=== PATIENT | male | born 2000 | race African-American/Black ===

== ENCOUNTER 2020-05-25 12:17 | Day surgery (SDC) | payer OTHER ==
[~2020-05-25 12:17] MED LIST: BUPIVACAINE HCL 0.5 % INJ/PF 30 ML SDV ONE; CEFAZOLIN 2 GM/D5W RTU 2 GM/50 ML RTUPB IV PRN; DEXAMETHASONE SOD PHOSPHATE INJ 4 MG/1 ML VIAL ONE; FENTANYL CITRATE INJ/PF 100 MCG/2 ML AMPUL ONE; MIDAZOLAM 2 MG/2 ML INJ ONE; ONDANSETRON HCL INJ/PF 4 MG/2 ML SDV ONE; PROPOFOL INJ 200 MG/20 ML VIAL IV ONE; SUCCINYLCHOLINE CHLORIDE INJ 200 MG/10 ML VIAL ONE
[2020-05-25] MEDS ORDERED: CEFAZOLIN 2 GM/D5W RTU 2 GM/50 ML RTUPB IV ONE (12:54)
[2020-05-25] MEDS ORDERED: PROMETHAZINE HCL INJ 25 MG/1 ML VIAL IV PRN ×2 (13:28)
[2020-05-25] MEDS ORDERED: DIPHENHYDRAMINE HCL 50 MG/ML VIAL IV PRN (13:28)
[2020-05-25] MEDS ORDERED: MEPERIDINE HCL/PF INJ 25 MG/1 ML DISP.SYRIN IV PRN (13:28)
[2020-05-25] MEDS ORDERED: FENTANYL CITRATE INJ/PF 100 MCG/2 ML AMPUL IV PRN ×3 (13:28)
[2020-05-25] MEDS ORDERED: ONDANSETRON HCL INJ/PF 4 MG/2 ML SDV IV PRN (13:28)
[2020-05-25] MEDS ORDERED: MORPHINE SULFATE 10 MG/ML INJ IV PRN (13:28)
[2020-05-25] MEDS ORDERED: OXYCODONE-ACETAMINOPHEN 5-325 MG TABLET PO PRN (13:38)
--- NOTE | 2020-05-25 13:39 | Discharge Summary ---
Discharge Summary (SDC) - Discharge Final Diagnosis: Right fifth metacarpal neck fracture Date of Surgery: 05/25/20 Discharge Date: 05/25/20 Condition: Good Treatment or Instructions: Schedule Follow Up w/ Dr. Martínez Israel @ [facility] for Surgery to be seen in 10-14 days or as scheduled [place]: [place]: [place]: Ice and elevate Patient may remove the splint for hygiene purposes but then reapply. If your fingers become numb please unwrap the Gerhard wrap but leave the splint in place, if the sensation does not return within 30 minutes please return to the emergency department. May begin finger range of motion attempting to make full fist. Please use ibuprofen (Motrin or Advil) 600-800 mg every 8 hours as needed for pain or fever DO NOT TAKE w/ TORADOL may use once TORADOL complete. You may also use acetaminophen (Tylenol) 1000 mg every 4-6 hours as needed for pain or fever. Please be aware that many medications contain acetaminophen, do not exceed a total of 1000 mg of acetaminophen every 6 hours. If ibuprofen and acetaminophen are not sufficient for your pain you may take the Percocet/Corn. Please be aware that the Percocet/Corn does contain Tylenol. Stool softener of choice when on pain medication. USE OF GGOI-ANI-LEJVNWI IBUPROFEN: Ibuprofen (Advil, Nuprin, Medipren, Motrin IB) is a medication for fever and pain control. In addition, it has anti- inflammatory effects which may be beneficial, especially in the treatment of injuries. It's best to take ibuprofen with food. Persons with ulcer disease or allergy to aspirin should notify their physician of this before taking ibuprofen. Ibuprofen can be given every four to six hours, for a total of four doses daily. Age Pain or fever dose Antiinflammatory dose 6-8 yr 200 mg (1 tab) 200 mg (1 tab) 9-11 yr 200 mg (1 tab) 200-400 mg (1-2 tab) 11-14 yr 200-400 mg (1-2 tab) 400 mg (2 tab) 15-adult 400 mg (2 tab) 600 mg (3 tab) ORAL NARCOTIC MEDICATION: You have been given a prescription for pain control. This medication is a narcotic. It's best taken with food, as nausea can result if taken on an empty stomach. Don't operate machinery or drive within six hours of taking this medica tion. Do not combine this medicine with alcohol, or with any medication which can cause sedation (such as cold tablets or sleeping pills) unless you get permission from the physician. Narcotics tend to cause constipation. If possible, drink plenty of fluids and eat a diet high in fiber and fruits. Please be aware that prescription narcotics also have the potential for abuse. People become addicted to these medications because of the general sense of wellbeing that they induce. This feeling along with a significant reduction in tension, anxiety, and aggression provides a stimulating seductive quality to these drugs. Once your pain is under control, we encourage you to discard your unused narcotics. Prescriptions: Ketorolac Tromethamine [Toradol 10 mg Tablet] 10 mg PO Q8HP PRN #10 tablet PRN Reason: Discharge Diet: As Tolerated Respiratory Treatments at Home: Deep Breathing/Coughing Discharge Activity: No Lifting Over 10 Pounds, No Lifting/Push/Pulling Report the Following to Your Physician Immediately: Fever over 101 Degrees, Unusual Bleeding, Redness, Swelling, Warmth, Increased Soreness
--- NOTE | 2020-05-25 13:42 | Operative Report ---
Operative Report DATE OF SURGERY: 05/25/20 PREOPERATIVE DIAGNOSIS: Right fifth metacarpal neck fracture POSTOPERATIVE DIAGNOSIS: Same OPERATION: ORIF displaced right fifth metacarpal neck fracture SURGEON: NETTIE HILTON ANESTHESIA: GA COMPLICATIONS: None ESTIMATED BLOOD LOSS: Minimal PROCEDURE: Indication for above procedure: 20-year-old male who sustained a fall onto his hand while playing basketball. Patient was found to have displaced metacarpal neck fracture. Conservative management was attempted including close reduction however patient had increased shortening and volar displacement. After discussing treatment options including operative versus nonoperative intervention risk and benefits were explained patient verbalized understanding consented for surgical procedure. Procedure In Detail: Patient was seen and evaluated in the preoperative holding area. The right upper extremity was initialized and marked. Patient received 2g of Ancef IV for bacterial prophylaxis. Patient was taken back to the operative room where transferred to the operative table and placed under general anesthesia. Once they were adequately anesthetized a nonsterile tourniquet was placed on the upper extremity. A surgical team debriefing was performed ensuring all instrumentation was available, the surgical procedure was discussed with p ossible concerns reviewed. The upper extremity was prepped with chlorhexidine and alcohol and draped in a sterile fashion. A timeout was done identifying correct patient, procedure and extremity everyone in attendance agree with this and verbalized no concerns. The extremity was exsanguinated the tourniquet was inflated to 250 mmHg. A 1 cm skin incision was made over the fifth MCP joint. Blunt dissection was performed. Extensor mechanism only was then opened and capsule exposed. Capsulotomy was made. Dorsal third of the metacarpal head was identified. There was mobility of the fracture noted on C arm fluoroscopy. The Jahss maneuver was then performed which reduced the metacarpal volar angular deformity and shortening. K wire for the [employer] 3.0 mm headless compression screws were then placed along the dorsal third within the articular surface. C-arm fluoroscopy was obtained which demonstrated improved metacarpal shortening and angular deformity no evidence of displacement. The articular surface was then countersunk. A 3.0 mm x 40 mm headless compression screw was then placed [place] was placed within the fracture site in order to avoid shortening however a cou ple millimeters of shortening did occur. Patient had full MP joint extension with tenodesis without evidence of malrotation. Final C arm fluoroscopy was obtained demonstrating acceptable reduction of the fracture. Wound copiously irrigated with normal saline. Extensor mechanism was closed interrupted 3-0 Vicryl suture. Half percent Marcaine without epinephrine was injected for postoperative pain control. Skin was closed with subcuticular 4-0 Monocryl reinforced with Dermabond and Steri-Strips. Patient was placed in a volar splint with partial mobilization of the MCP joints leaving the IP joints free. Sponge counts, instrument counts, needle counts were correct. Patient was then awoken from anesthesia. Transferred from the operating room table to the operating room stretcher. There was no intraoperative complications patient tolerated procedure well stable to PACU. Postop plan: Patient follow the office in 2 weeks we will obtain x-rays. Will begin range of motion 2 weeks postoperatively.
[2020-05-25] MEDS ORDERED: OXYCODONE-ACETAMINOPHEN 5-325 MG TABLET ONE ×2 (14:13→14:35)
--- NOTE | 2020-05-25 15:13 | RADIOLOGY REPORT (SQ) ---
EXAM DESCRIPTION: NO CHG FLUORO; HAND RIGHT 2 VIEWS IMAGES COMPLETED DATE/TIME: 05/25/2020 2:09 pm REASON FOR STUDY: HARDWARE PLACEMENT/PERC PINNING RIGHT 5TH METACARPAL ASSISTED WITH FLUORO S62.336D DISP FX OF NK OF 5TH MC BONE, R HAND, 7THD COMPARISON: None. FLUOROSCOPY TIME: 19 second 3 images saved to PACS. TECHNIQUE: Intra-operative images acquired during surgical procedure to evaluate progress. NUMBER OF IMAGES: 3 LIMITATIONS: None. FINDINGS: Orthopedic screw fixation of 5th metacarpal fracture. IMPRESSION: IMAGE(S) OBTAINED DURING PROCEDURE. COMMENT: Quality ID 145: Final reports for procedures using fluoroscopy that document radiation exp osure indices, or exposure time and number of fluorographic images (if radiation exposure indices are not available) Please consult full operative report of the attending physician for description of the procedure. TECHNICAL DOCUMENTATION: JOB ID: [id number] 2010 [employer]- All Rights Reserved Reading location - IP/workstation name: [email or web address]
--- NOTE | 2020-05-25 15:13 | RADIOLOGY REPORT (SQ) ---
EXAM DESCRIPTION: NO CHG FLUORO; HAND RIGHT 2 VIEWS IMAGES COMPLETED DATE/TIME: 05/25/2020 2:09 pm REASON FOR STUDY: HARDWARE PLACEMENT/PERC PINNING RIGHT 5TH METACARPAL ASSISTED WITH FLUORO S62.336D DISP FX OF NK OF 5TH MC BONE, R HAND, 7THD COMPARISON: None. FLUOROSCOPY TIME: 19 second 3 images saved to PACS. TECHNIQUE: Intra-operative images acquired during surgical procedure to evaluate progress. NUMBER OF IMAGES: 3 LIMITATIONS: None. FINDINGS: Orthopedic screw fixation of 5th metacarpal fracture. IMPRESSION: IMAGE(S) OBTAINED DURING PROCEDURE. COMMENT: Quality ID 145: Final reports for procedures using fluoroscopy that document radiation exp osure indices, or exposure time and number of fluorographic images (if radiation exposure indices are not available) Please consult full operative report of the attending physician for description of the procedure. TECHNICAL DOCUMENTATION: JOB ID: [id number] 2010 [employer]- All Rights Reserved Reading location - IP/workstation name: [email or web address]
[2020-05-25 18:08] VITALS: BP 129/82
== END 2020-05-25 17:25 | disposition home or self-care (01) ==
LOC: OROUT 12:17
PROVIDERS: ATTEND Orthopaedic Surgery
DX: S62.336A Displaced fracture of neck of fifth metacarpal bone, right hand, initial encounter for closed fracture (principal); W19.XXXA Unspecified fall, initial encounter; Y93.67 Activity, basketball; Z20.828 Contact with and (suspected) exposure to other viral communicable diseases
CPT/HCPCS: 87635; 73120; 26615; J2250; J3490; J1100; J3010; J2405; J2704; J0690; C9803; 01830; C1713; J0330